=== PATIENT | male | born 2000 ===

== ENCOUNTER 2021-12-02 13:34 | Emergency (ER) | payer OTHER ==
[~2021-12-02] VITALS: Ht 172.7 cm; Wt 78.0 kg
== END 2021-12-02 14:46 | disposition home or self-care (01) ==
LOC: ER 13:34
DX: S40.012A Contusion of left shoulder, initial encounter (principal); M25.511 Pain in right shoulder; V89.2XXA Person injured in unspecified motor-vehicle accident, traffic, initial encounter
CPT/HCPCS: 73030; 99283-25; A9270